=== PATIENT | male | born 1970 | race African-American/Black ===

== ENCOUNTER 2021-11-30 15:11 | Observation (INO) | payer MEDICARE ==
[2021-11-30] MEDS ORDERED: Acetaminophen 325 MG TAB PO PRN (18:24)
[2021-11-30] MEDS ORDERED: Acetaminophen 650 MG Suppository PR PRN (18:24)
[2021-11-30] MEDS ORDERED: Ondansetron ODT 4 MG TAB PO PRN (18:24)
[2021-11-30] MEDS ORDERED: Ondansetron PF 4 MG/2 ML Vial IVP PRN (18:24)
[2021-11-30] MEDS ORDERED: levETIRAcetam in NS 1,000 MG in Premix Bag 1 BAG IVPB SCH (21:00)
[2021-11-30] MEDS: Metoprolol Tartrate 50 MG TAB PO SCH (21:09)
[2021-11-30] MEDS: levETIRAcetam 500 MG/5 ML VIAL SLOW IVP SCH (21:09)
[2021-11-30] MEDS: OXcarbazepine 300 MG TAB PO SCH (21:09)
[2021-11-30 21:22] VITALS: BMI 33.2
[2021-12-01 05:05] LABS: #Basophils 0.1 thou/uL (0.0-0.2); #Eosinphils 0.3 thou/uL (0.0-0.7); #Lymphocytes 2.4 thou/uL (1.20-3.40); #Monocytes 0.7 thou/uL (0.11-0.59); #Neutrophils 3.7 thou/uL (1.40-6.50); %Basophils 0.8 % (0.0-1.0); %Eosinophils 3.9 % (0.0-10.0); %Lymphocytes 33.9 % (21.0-51.0); %Monocytes 9.1 % (0.0-10.0); %Neutrophils 52.3 % (42.0-75.0); Hemoglobin 13.4 g/dL (14.0-18.0); Mean Corpuscular Hemoglobin 28.3 pg (27.0-31.0); Mean Corpuscular Volume 88.5 fL (78.0-98.0); Mean Platelet Volume 7.9 fL (7.4-10.4); Platelet Count 210 thou/uL (130-400); RBC Distribution Width 13.5 % (11.5-14.5); Red Blood Cell (RBC) Count 4.75 mill/uL (4.70-6.10); White Blood Cell (WBC) Count 7.2 thou/uL (4.8-10.8)
[2021-12-01 05:20] LABS: Anion Gap 10 mmol/L (10-20); BUN (Urea Nitrogen) 8 mg/dL (8.4-25.7); Calc. Creatinine Clearance 171 mL/min (70-130); Calcium 8.5 mg/dL (7.8-10.44); Carbon Dioxide 25 mmol/L (22-29); Chloride 106 mmol/L (98-107); Estimated GFR 108; Glucose 155 mg/dL (70-105); Potassium 3.1 mmol/L (3.5-5.1); Sodium 138 mmol/L (136-145)
[2021-12-01] MEDS: OXcarbazepine 300 MG TAB PO SCH ×2 (09:13→20:44)
[2021-12-01] MEDS: levETIRAcetam 500 MG/5 ML VIAL SLOW IVP SCH (09:13)
[2021-12-01] MEDS: Metoprolol Tartrate 50 MG TAB PO SCH ×2 (09:13→20:44)
[2021-12-01] MEDS: risperiDONE 1 MG TAB PO SCH (09:13)
[2021-12-01] MEDS ORDERED: Lisinopril 20 MG TAB PO SCH (15:30)
[2021-12-01] MEDS ORDERED: Potassium Chloride 20 MEQ TAB PO SCH (15:45)
[2021-12-01] MEDS: levETIRAcetam 500 MG TAB PO SCH (20:44)
[2021-12-01] MEDS ORDERED: Atorvastatin Calcium 40 MG TAB PO SCH (21:00)
[2021-12-02 04:59] VITALS: TEMP 97.5
[2021-12-02 05:16] LABS: #Basophils 0.1 thou/uL (0.0-0.2); #Eosinphils 0.3 thou/uL (0.0-0.7); #Monocytes 0.7 thou/uL (0.11-0.59); #Neutrophils 3.3 thou/uL (1.40-6.50); %Basophils 0.8 % (0.0-1.0); %Lymphocytes 40.7 % (21.0-51.0); %Monocytes 9.6 % (0.0-10.0); %Neutrophils 44.9 % (42.0-75.0); Hemoglobin 13.8 g/dL (14.0-18.0); Mean Corpuscular HGB CONC 32.1 g/dL (32.0-36.0); Mean Corpuscular Hemoglobin 28.7 pg (27.0-31.0); Mean Corpuscular Volume 89.3 fL (78.0-98.0); Platelet Count 204 thou/uL (130-400); RBC Distribution Width 13.7 % (11.5-14.5); White Blood Cell (WBC) Count 7.3 thou/uL (4.8-10.8)
[2021-12-02 05:31] LABS: Anion Gap 12 mmol/L (10-20); BUN (Urea Nitrogen) 13 mg/dL (8.4-25.7); Calc. Creatinine Clearance 169 mL/min (70-130); Calcium 8.6 mg/dL (7.8-10.44); Carbon Dioxide 22 mmol/L (22-29); Chloride 109 mmol/L (98-107); Estimated GFR 108; Glucose 94 mg/dL (70-105); Magnesium 1.9 mg/dL (1.6-2.6); Potassium 3.7 mmol/L (3.5-5.1); Sodium 139 mmol/L (136-145)
[2021-12-02] MEDS ORDERED: Clopidogrel Bisulfate 75 MG TAB PO SCH (09:00)
[2021-12-02] MEDS ORDERED: Lisinopril 20 MG TAB PO SCH (09:00)
[2021-12-02] MEDS: OXcarbazepine 300 MG TAB PO SCH (09:14)
[2021-12-02] MEDS: Metoprolol Tartrate 50 MG TAB PO SCH (09:15)
[2021-12-02] MEDS: levETIRAcetam 500 MG TAB PO SCH (09:15)
[2021-12-02] MEDS: risperiDONE 1 MG TAB PO SCH (09:15)
[2021-12-02 12:15] VITALS: BP 144/96
== END 2021-12-02 14:18 | disposition home or self-care (01) ==
LOC: NEURO 17:38
PROVIDERS: ADMIT Hospitalist; ATTEND Hospitalist
DX: G40.919 Epilepsy, unspecified, intractable, without status epilepticus (principal); I11.9 Hypertensive heart disease without heart failure; E78.5 Hyperlipidemia, unspecified; F31.9 Bipolar disorder, unspecified; E87.6 Hypokalemia; Z86.73 Personal history of transient ischemic attack (TIA), and cerebral infarction without residual deficits; Z91.14 Patient's other noncompliance with medication regimen; Z79.02 Long term (current) use of antithrombotics/antiplatelets; Z79.899 Other long term (current) drug therapy; Z20.822 Contact with and (suspected) exposure to COVID-19
CPT/HCPCS: 80048 ×2; 80177; 83735; 85025 ×2; 95712; 95819; 95957; 96374; 96376; G0378 ×3; J1953 ×2; U0003; U0005; 36415